=== PATIENT | male | born 1980 | race Caucasian/White ===

== ENCOUNTER 2021-05-05 14:27 | Inpatient (IN) | payer SELFPAY ==
[2021-05-05 14:28] VITALS: BP 141/115; PULSE 125; RESP 18; TEMP 36.6; O2SAT 94; BMI 37.3
[2021-05-05 15:09] LABS: Absolute Lymphocyte Count 1.53 X10^3/uL (0.83-4.51); Absolute Neutrophil Count 3.3 X10^3/uL (2.0-7.7); Basophil# 0.05 X10^3/uL; Basophil% 0.9 % (0-1); Eosinophil# 0.07 X10^3/uL; Eosinophils% 1.3 % (0-5); Hematocrit 47.7 % (40-54); Hemoglobin 16.5 g/dL (13.0-16.5); Lymphocyte # 1.53 X10^3/ul (0.83-4.51); Lymphocyte % 28.2 % (19-41); Mean Corp Hgb Conc 34.6 g/dL (32-36); Mean Corpuscular Hgb 30.4 pg (27.0-32.0); Mean Corpuscular Volume 87.8 fL (80-94); Mean Platelet Vol. 10.5 fl (6.2-12.0); Monocyte# 0.43 X10^3/uL; Monocyte% 7.9 % (0-10); NRBC Flagged by Analyzer 0 % (0-5); Neutrophil # 3.34 X10^3/uL (2.7-7.7); Neutrophil % 61.5 % (47-70); Platelet Count 287 K/mm3 (150-450); RBC Distribution Width CV 14.4 % (11.6-14.6); RBC Distribution Width SD 44.1 fl (35.1-43.9); Red Blood Count 5.43 M/mm3 (4.6-6.2); White Blood Count 5.4 K/mm3 (4.4-11.0)
[2021-05-05 15:31] VITALS: RESP 18
[2021-05-05 15:31] LABS: AST(SGOT) 137 U/L (15-37); Alanine Aminotransfer ALT/SGPT 89 U/L (16-61); Alkaline Phosphatase 110 U/L (45-117); Anion Gap 16 (5-15); BUN 6 mg/dL (7-18); BUN/Creat Ratio 5.8 RATIO (10-20); Calcium,Total 8.5 mg/dL (8.5-10.1); Chloride 98 mmol/L (98-107); Creatinine, Serum 1.04 mg/dL (0.70-1.30); EST Glomerular Filtration Rate 83 mL/min (>60); Est Glom Filt Rate - Afr Amer 100 mL/min (>60); Estimated Creatinine Clearance 95.54 ml/min; Globulin 4.1 g/dL (2.2-4.2); Glucose 116 mg/dL (74-106); Potassium 2.9 mmol/L (3.5-5.1); Protein, Total 8.1 g/dL (6.4-8.2); Sodium Level 137 mmol/L (136-145)
--- NOTE | 2021-05-05 15:45 | EX.ED.DYSGE1 ---
HPI History of Present Illness Chief Complaint: ETOH Intox Informant: patient and spouse/S.O. Narrative Narrative: Patient comes in requesting detox. He states he has been drinking alcohol for probably 15 years or more relatively heavily. He tends to binge more. He will drink very heavily for months at a time and then he will not drink sometimes for months. When he transitions, he does go through withdrawal with nausea anxiety poor sleep muscle aches. He has had hallucinations and withdrawal in the past but that is been a couple years. He has never had a seizure. He drinks mostly gas station vodka which is likely 40 proof. But his girlfriend states he can drink up to 2 bottles 1-1/2 L each day. Nothing specifically got him to the point of going to detox now. He is just realized he really needs to stop drinking. He has never been through formal detox in the past. He has no physical complaints such as fevers chills. He has not been vomiting. Past medical history: Alcoholism, high blood pressure but not on meds No current medications No known allergies Prior surgery is cholecystectomy Independent living, his girlfriend, drinks alcohol as above. [facility] Medical History Cholecystectomy planned Home Medications multivitamin 1 cap PO DAILY 05/05/21 [History Last Taken Unknown] Allergy/AdvReac Type Severity Reaction Status Date / Time No Known Allergies Allergy Verified 05/05/21 14:31 Social History Smoking Status: Never smoker ROS ROS ED Constitutional Constitutional ED: Denies chills or fever(s) Eyes Eyes: Denies blurry vision ENT ENT ED: Denies rhinorrhea or sore throat Cardiovascular Cardiovascular: Denies chest pain Respiratory/Chest Respiratory/Chest: Denies cough or dyspnea Gastrointestinal Gastrointestinal: Denies diarrhea, nausea or vomiting Genitourinary Genitourinary ED: Denies dysuria Musculoskeletal Musculoskeletal: Denies arthralgias or myalgias Integumentary Denies rash Neurologic Neurologic: Denies headache(s) Psychiatric Psychiatric: Reports anxiety and depression; Denies suicidal ideation or suicidal thoughts Endocrine Endocrinology: Denies polydipsia or polyuria Allergic/Immunologic Allergic/Immunologic ED: Denies urticaria EXAM Physical Exam Const Vital Signs: 05/05/21 14:28 05/05/21 15:31 Temperature 97.9 F Temperature Source Temporal Pulse Rate 125 H Respiratory Rate 18 18 Blood Pressure 141/115 H Blood Pressure Mean 123 Pulse Ox 94 Oxygen Delivery Method Room Air Positive well nourished Constitutional Narrative: Patient just looks mildly unkempt. But he is awake alert. He is not toxic. General Appearance ED: Negative for cyanotic or diaphoretic HEENT Reports moist mucous membranes Eyes General Eye ED: Negative for pale conjunctiva or scleral icterus Neck no JVD Chest Wall inspection of chest normal Resp normal respiratory effort Cardio regular rhythm Rate: tachycardic and other Other Details: Mildly tachycardic rate. GI normal to inspection, nondistended, normoactive bowel sounds and non-tender Palpation: soft Back/Spine no CVA tenderness Extremity normal to inspection Neuro oriented x3 Sensorium / Orientation: alert Psych mental status grossly normal Psych Narrative: No ideas. No paranoia. No indication of hallucinations. Attitude: No agitated Skin no rashes or lesions noted General Skin Exam: Negative for jaundice MDM MDM MDM Narrative Medical decision making narrative: CBC is overall normal. Electrolytes do show some mildly low potassium. I will give this some oral replacement. His gap is minimally elevated but bicarb is normal. I do not think this represents full alcoholic ketoacidosis. He has not been vomiting. I am waiting on his alcohol and tox screen. I did discuss the case with the hospitalist and the patient will be admitted. Lab Data Attestation: I reviewed the patient's lab results. Labs: Laboratory Results - last 24 hr 05/05/21 05/05/21 05/05/21 14:57 14:57 15:28 WBC 5.4 RBC 5.43 Hgb 16.5 Hct 47.7 MCV 87.8 MCH 30.4 MCHC 34.6 RDW Std Deviation 44.1 H RDW Coeff of Jose 14.4 Plt Count 287 MPV 10.5 Immature Gran % (Auto) 0.200 Neut % (Auto) 61.5 Lymph % (Auto) 28.2 [place] % (Auto) 7.9 Eos % (Auto) 1.3 Baso % (Auto) 0.9 Absolute Neuts (auto) 3.3 Absolute Lymphs (auto) 1.53 Nucleated RBC % 0 Sodium 137 Potassium 2.9 L Chloride 98 Carbon Dioxide 23.0 Anion Gap 16 H BUN 6 L Creatinine 1.04 Estim Creat Clear Calc 95.54 Est GFR (MDRD) Af Amer 100 Est GFR (MDRD) Non-Af 83 BUN/Creatinine Ratio 5.8 L Glucose 116 H Calcium 8.5 Total Bilirubin 0.90 AST 137 H ALT 89 H Alkaline Phosphatase 110 Total Protein 8.1 Albumin 4.0 Globulin 4.1 Albumin/Globulin Ratio 1.0 Ur Drug Screen Comment Discharge Plan Triage Chief Complaint: ETOH Intox ED Provider: Warren Alvarado Dx/Rx/DC Orders Clinical Impression: Admitted to alcohol detoxification center, Hypokalemia, Alcohol abuse Prescriptions: No Action multivitamin Capsule 1 cap PO DAILY RF: 0 Primary Care Provider: Heydi Epps Referrals: Heydi Epps DO [Primary Care Provider] - Disposition Disposition: Home, Self Care
--- NOTE | 2021-05-05 15:49 | EKG12_ITS ---
Test Reason : ALCOHOL WITHDRAWAL Blood Pressure : / mmHG Vent. Rate : 100 BPM Atrial Rate : 100 BPM P-R Int : 128 ms QRS Dur : 090 ms QT Int : 344 ms P-R-T Axes : 050 -21 -03 degrees QTc Int : 443 ms Normal sinus rhythm Poor R wave progression Confirmed by REBECA MATTHEW, CHARLEY ([id number]), online editor CONSTANCE JARVIS ([id number]) on 05/06/2021 9:25:09 AM Referred By: BEA Confirmed By:CHARLEY JOSE MD
[2021-05-05 15:59] LABS: Amphetamine Urine VISTA NEGATIVE (<1000 ng/mL); Barbiturate Urine VISTA NEGATIVE (< 200 ng/mL); Benzodiazepine Urine VISTA NEGATIVE (< 200 ng/mL); Cocaine Urine VISTA NEGATIVE (< 300 ng/mL); Ecstacy Urine VISTA NEGATIVE (< 500 ng/mL); Methadone Urine VISTA NEGATIVE (< 300 ng/mL); PCP Urine VISTA NEGATIVE (< 25 ng/mL); THC Urine VISTA NEGATIVE (< 50 ng/mL); Vista UDS pH Range 6
--- NOTE | 2021-05-05 16:01 | CM.ED ---
Social Work Telephone call to treatment navigator, Kayla. This home health care social worker updated Kayla on patient admission to [facility]. Social Work to continue to follow as needed. Dejuan MIKE, RUTH
[2021-05-05] MEDS: Potassium Chloride Oral Tablet 20 MEQ 60 MEQ PO (16:18)
[2021-05-05 16:23] VITALS: BP 144/100; PULSE 137; RESP 18; TEMP 37; O2SAT 99
--- NOTE | 2021-05-05 16:29 | HP.PCM.HOS_ITS ---
HPI - General General Date of Admission: 05/05/21 Date of Service: 05/05/21 Chief Complaint: Acute alcohol withdrawal HPI Narrative CHACE BENTLEY, is a 40 M who presented to the emergency department [facility] on 05/05/2021 requesting alcohol detox. The patient states that he has been binge drinker since the early and has been binge drinking currently for approximately 1 week. His last full meal was Tuesday of last week. He is currently drinking about 3 L of gas station vodka daily. He states when he initially started drinking he would come home and not time he would unwind from work and that he has had periodic problems with alcohol abuse since that point time. He does have a family history of alcoholism and uncles on both sides of his family. His last drink was approximately 930 to 10:00 this morning. He is currently having some symptoms associated with tremor, tachycardia, elevated blood pressure and some mild nausea. He states he has good support in his current girlfriend and that she has been advocating for his detox as well. In the emergency department he is afebrile with a heart rate of 125-137 and his blood pressure was mildly elevated at 144/100. His respiratory rate was 18 and his oxygen saturation was 94 to 99% on room air. A CBC was obtained and is unremarkable. A CMP was obtained and shows mild hypokalemia with a potassium of 2.9, and elevated anion gap at 16 a normal serum creatinine, a normal serum bicarb, a glucose of 116 and an AST of 137 with an ALT of 89. His bilirubin is normal. His tox screen is positive for ethyl alcohol with a blood alcohol level of 346. In the emergency department he was given oral potassium supplementation request for admission with regards to alcohol detox was made. [facility] Medical History (Updated 05/05/21 @ 16:[address] Sydnee Rea DO) Alcoholism Cholecystectomy planned Chronic hypokalemia Home Medications multivitamin 1 cap PO DAILY 05/05/21 [History Last Taken Unknown] Allergy/AdvReac Type Severity Reaction Status Date / Time No Known Allergies Allergy Verified 05/05/21 14:31 Family History (Updated 05/05/21 @ 16:[address] Sydnee Rea DO) Other Alcoholism Hypertension no surgical history Social History (Updated 05/05/21 @ 16:[address] Sydnee Álvaro, DO) Smoking Status: Never smoker alcohol intake: current alcohol intake frequency: 3 or more drinks per day Alcohol type: hard liquor substance use type: does not use ROS Constitutional Constitutional: Reports weakness; Denies anorexia, change in weight, chills, fatigue, fever(s), malaise, night sweats or other Eyes Eyes: Denies blurry vision, change in eye color, change in vision, discharge from eye(s), double vision, erythema, eye pain, loss of vision or other ENT HEENT: Denies abnormal hearing, dysphagia, ear pain, epistaxis, headache(s), hearing loss, nasal congestion, nasal discharge, post nasal drip, sinus pressure, sore throat or other Cardiovascular Cardiovascular: Denies chest pain, claudication, dyspnea on exertion, edema, lightheadedness, orthopnea, palpitations, paroxysmal nocturnal dyspnea, rapid heart rate, syncope or other Respiratory/Chest Respiratory/Chest: Denies cough, dyspnea, excessive phlegm production, hemoptysis, productive cough, shortness of breath at rest, shortness of breath with exertion, wheezing or other Gastrointestinal Gastrointestinal: Reports nausea; Denies abdominal pain, coffee ground emesis, constipation, diarrhea, dyspepsia, hematemesis, hematochezia, loose stools, melena, vomiting or other Genitourinary Genitourinary: Denies burning urination, difficulty urinating, dysuria, hematuria, nocturia, urinary frequency, urinary hesitancy, urinary incontinence, urinary urgency or other Musculoskeletal Musculoskeletal: Reports myalgias; Denies arthralgias, back pain, joint pain, joint stiffness, joint swelling, neck pain or other Neurologic Neurologic: Reports tremor(s); Denies abnormal gait, abnormal speech, confusion, disequilibrium, dizziness, focal weakness, headache(s), numbness, paresthesias, seizure-like activity, seizures, syncope, tingling or other Psychiatric Psychiatric: Reports anxiety and depression; Denies homicidal ideation, suicidal ideation or other Endocrine Endocrinology: Denies change in body appearance, cold intolerance, excessive swe ating, heat intolerance, polydipsia, polyuria or other Hematologic/Lymphatic Hematologic/Lymphatic: Denies anemia, easy bleeding, easy bruising, lymphadenopathy or other Allergic/Immunologic Allergic/Immunologic: Denies rhinitis, hives, eczemia, asthma or other Vital Signs Vital Signs Vital Signs: 05/05/21 14:28 05/05/21 15:31 05/05/21 16:23 Temperature 97.9 F 98.6 F Temperature Source Temporal Temporal Pulse Rate 125 H 137 H Respiratory Rate 18 18 18 Blood Pressure 141/115 H 144/100 H Blood Pressure Mean 123 114 Pulse Ox 94 99 Oxygen Delivery Method Room Air Room Air Weight Weight: 117.934 kg Body Mass Index (BMI) 37.3 Physical Exam Const alert, oriented x3, no apparent distress and well nourished Constitutional Narrative: Obese white male lying in bed, girlfriend at bedside, patient appears as if he is not feeling well but nontoxic General Appearance: cooperative HEENT normocephalic, head/scalp atraumatic, hearing grossly normal bilaterally and moist oral mucous membranes HEENT Narrative: Dentition is good, Mallampati is 2-3 Resp normal respiratory effort, no retractions, no use of accessory muscles and clear to auscultation bilaterally Auscultation: Negative for crackles, rales, rhonchi or wheezes Cardio regular rhythm, S1 normal heart sound, S2 normal heart sound, no murmurs, no rub, no gallops, no clicks and no JVD Cardio Narrative: Tachycardic GI normal to inspection, nondistended, normoactive bowel sounds, soft to palpation, non-tender and non-distended Extremity no clubbing, cyanosis or edema Peripheral Pulses: Yes pulses 2+ throughout Skin no rashes or lesions noted, no wounds, skin turgor normal, no jaundice, no petechiae and no mottling Skin Narrative: Multiple tattoos Neuro oriented x3, CN's II-XII intact bilaterally, moves all extremities and no focal motor deficits Sensorium / Orientation: awake and alert Speech: speech normal Motor Exam: strength 5/5 throughout Psych Psych Narrative: Affect is somewhat flat Mood & Affect: anxious Results Lab / Micro Data Result Diagrams: 05/05/21 14:57 05/05/21 14:57 Labs: Laboratory Results - last 24 hr 05/05/21 14:57: WBC 5.4, RBC 5.43, Hgb 16.5, Hct 47.7, MCV 87.8, MCH 30.4, MCHC 34.6, RDW Std Deviation 44.1 H, RDW Coeff of Jose 14.4, Plt Count 287, MPV 10.5, Immature Gran % (Auto) 0.200, Neut % (Auto) 61.5, Lymph % (Auto) 28.2, [place] % (Auto) 7.9, Eos % (Auto) 1.3, Baso % (Auto) 0.9, Absolute Neuts (auto) 3.3, Absolute Lymphs (auto) 1.53, Nucleated RBC % 0 05/05/21 14:57: Ethyl Alcohol 346.0 H* 05/05/21 14:57: Sodium 137, Potassium 2.9 L, Chloride 98, Carbon Dioxide 23.0, Anion Gap 16 H, BUN 6 L, Creatinine 1.04, Estim Creat Clear Calc 95.54, Est GFR (MDRD) Af Amer 100, Est GFR (MDRD) Non-Af 83, BUN/Creatinine Ratio 5.8 L, Glucose 116 H, Calcium 8.5, Total Bilirubin 0.90, AST 137 H, ALT 89 H, Alkaline Phosphatase 110, Total Protein 8.1, Albumin 4.0, Globulin 4.1, Albumin/Globulin Ratio 1.0 05/05/21 15:28: Urine Opiates Screen NEGATIVE, Urine Methadone Screen NEGATIVE, Ur Barbiturates Screen NEGATIVE, Ur Phencyclidine Scrn NEGATIVE, Ur Amphetamines Screen NEGATIVE, U Methamphetamin-MDMA NEGATIVE, U Benzodiazepines Scrn NEGATIVE, Urine Cocaine Screen NEGATIVE, U Cannabinoids Screen NEGATIVE, Ur Drug Screen Comment Assessment & Plan Assessment/Plan (1) Alcoholic hepatitis: (2) Acute alcohol intoxication: (3) Elevated blood pressure reading: (4) Hypokalemia: (5) Alcohol abuse: (6) Alcohol withdrawal: PLAN: Acute alcohol withdrawal/detox -Last drink was 930 to 10:00 this morning -Patient was acutely intoxicated upon presentation with a blood alcohol level of 346 -Tends to binge drink and currently has been drinking about 3 L of vodka that he buys at a [employer] [facility] daily for at least 1 week -Phenobarb taper -CIWA protocol with Ativan -Supportive medications -180 consultation Hypokalemia -60 mEq of p.o. potassium given the emergency department -Repeat BMP in a.m. -Check magnesium and phosphorus levels Alcoholic hepatitis -Mild LFT elevation -Alcoholic pattern -Repeat LFTs in a.m. -Bilirubin is normal Elevated anion gap -Likely related to acute intoxication with ethyl alcohol -Repeat lab in a.m. -Bicarb is normal -He also have a component of starvation ketosis Elevated blood pressure reading -No baseline diagnosis of hypertension -May related to acute withdrawal only -Trend -May need antihypertensive prior to discharge if blood pressure remains elevated Tachycardia -Sinus tach -Suspect related to acute withdrawal -Continue to monitor -No need for telemetry at this time DVT prophylaxis -Early ambulation protocol -Patient is low risk for DVT CODE STATUS -Full code Charges/Coding Visit Charges Inpatient E&M: 54714 Init Hosp L2
[2021-05-05 16:35] VITALS: BMI 38.2
[2021-05-05 16:54] VITALS: BP 158/100; PULSE 106; RESP 18; TEMP 36.8; O2SAT 95
[2021-05-05] MEDS: Phenobarbital 32.4 MG Tablet 64.8 MG PO ×2 (17:28→21:04)
[2021-05-05] MEDS: hydrOXYzine PAM 25 MG Capsule 50 MG PO (17:28)
[2021-05-05] MEDS: traZODone 100 MG Tablet PO (21:04)
[2021-05-05 21:08] VITALS: BP 127/79; PULSE 90; RESP 18; TEMP 36.9; O2SAT 99
[2021-05-06] MEDS: Phenobarbital 32.4 MG Tablet 64.8 MG PO ×6 (01:14→20:28)
[2021-05-06 01:15] VITALS: BP 122/77; PULSE 89; RESP 18; TEMP 37.1; O2SAT 98
[2021-05-06] MEDS: hydrOXYzine PAM 25 MG Capsule 50 MG PO (04:56)
[2021-05-06 04:57] VITALS: BP 124/84; PULSE 79; RESP 18; TEMP 37.1; O2SAT 98
[2021-05-06 07:15] LABS: ALB/GLOB Ratio 0.9 RATIO (0.9-2.4); AST(SGOT) 120 U/L (15-37); Alanine Aminotransfer ALT/SGPT 83 U/L (16-61); Albumin, Serum 3.6 g/dL (3.2-5.0); Alkaline Phosphatase 99 U/L (45-117); Anion Gap 12 (5-15); BUN 6 mg/dL (7-18); BUN/Creat Ratio 7.3 RATIO (10-20); Calcium,Total 8.2 mg/dL (8.5-10.1); Chloride 96 mmol/L (98-107); Creatinine, Serum 0.82 mg/dL (0.70-1.30); EST Glomerular Filtration Rate 109 mL/min (>60); Est Glom Filt Rate - Afr Amer 131 mL/min (>60); Estimated Creatinine Clearance 121.17 ml/min; Globulin 3.9 g/dL (2.2-4.2); Glucose 78 mg/dL (74-106); Magnesium 1.5 mg/dL (1.6-2.6); Potassium 2.9 mmol/L (3.5-5.1); Protein, Total 7.5 g/dL (6.4-8.2); Sodium Level 133 mmol/L (136-145)
--- NOTE | 2021-05-06 07:16 | PN.HOSP_ITS ---
Subjective Subjective 40-year-old gentleman with history of alcohol dependence presented with acute alcohol withdrawal Objective Data Objective Data Vital Signs: Vital Signs Temp Pulse Resp BP Pulse Ox 98.8 F 79 18 124/84 H 98 05/06/21 04:57 05/06/21 04:57 05/06/21 04:57 05/06/21 04:57 05/06/21 04:57 Oxygen Delivery Method Room Air Weight: 120.882 kg Body Mass Index (BMI) 38.2 Intake & Output: Intake and Output for Last 24 Hours 05/04/21 05/05/21 05/06/21 23:59 23:59 23:59 Intake Total 1800 / 1800 Balance 1800 / 1800 Lab / Micro Data Result Diagrams: 05/05/21 14:57 05/06/21 05:15 Labs: Laboratory Results - last 24 hr 05/05/21 14:57: WBC 5.4, RBC 5.43, Hgb 16.5, Hct 47.7, MCV 87.8, MCH 30.4, MCHC 34.6, RDW Std Deviation 44.1 H, RDW Coeff of Jose 14.4, Plt Count 287, MPV 10.5, Immature Gran % (Auto) 0.200, Neut % (Auto) 61.5, Lymph % (Auto) 28.2, [place] % (Auto) 7.9, Eos % (Auto) 1.3, Baso % (Auto) 0.9, Absolute Neuts (auto) 3.3, Absolute Lymphs (auto) 1.53, Nucleated RBC % 0 05/05/21 14:57: Ethyl Alcohol 346.0 H* 05/05/21 14:57: Sodium 137, Potassium 2.9 L, Chloride 98, Carbon Dioxide 23.0, Anion Gap 16 H, BUN 6 L, Creatinine 1.04, Estim Creat Clear Calc 95.54, Est GFR (MDRD) Af Amer 100, Est GFR (MDRD) Non-Af 83, BUN/Creatinine Ratio 5.8 L, Glucose 116 H, Calcium 8.5, Total Bilirubin 0.90, AST 137 H, ALT 89 H, Alkaline Phosphatase 110, Total Protein 8.1, Albumin 4.0, Globulin 4.1, Albumin/Globulin Ratio 1.0 05/05/21 15:28: Urine Opiates Screen NEGATIVE, Urine Methadone Screen NEGATIVE, Ur Barbiturates Screen NEGATIVE, Ur Phencyclidine Scrn NEGATIVE, Ur Amphetamines Screen NEGATIVE, U Methamphetamin-MDMA NEGATIVE, U Benzodiazepines Scrn NEG ATIVE, Urine Cocaine Screen NEGATIVE, U Cannabinoids Screen NEGATIVE, Ur Drug Screen Comment 05/06/21 05:15: Sodium 133 L, Potassium 2.9 L, Chloride 96 L, Carbon Dioxide 25.0, Anion Gap 12, BUN 6 L, Creatinine 0.82, Estim Creat Clear Calc 121.17, Est GFR (MDRD) Af Amer 131, Est GFR (MDRD) Non-Af 109, BUN/Creatinine Ratio 7.3 L, Glucose 78, Calcium 8.2 L, Magnesium 1.5 L, Total Bilirubin 1.40 H, AST 120 H, ALT 83 H, Alkaline Phosphatase 99, Total Protein 7.5, Albumin 3.6, Globulin 3.9, Albumin/Globulin Ratio 0.9 Physical Exam Narrative GENERAL: cooperative HEENT: Atraumatic; EYES; Anicteric, Normal Conjunctiva NECK; supple, normal thyroid, RESPIRATORY: Diminished to auscultation CARDIOVASCULAR: Regular S1 S2, GI: soft, normoactive bowel sounds, : No Renal angle tenderness; EXTREMITIES: No edema, no clubbing, MUSCULOSKELETAL: no muscle waisting NEURO: Awake; no lateralizing signs. SKIN: No Rash PSYCH; Flat affect Assessment & Plan Assessment/Plan (1) Alcoholic hepatitis: (2) Acute alcohol intoxication: (3) Elevated blood pressure reading: (4) Hypokalemia: (5) Alcohol abuse: (6) Alcohol withdrawal: PLAN: 40-year-old gentleman with history of alcohol dependence presented with acute alcohol withdrawal 1. Acute alcohol withdrawal ?Admitted to regular nursing floor being managed with phenobarb taper. Patient progress being monitored with a [facility] protocol 2. Hypokalemia ?Corrected per protocol, subsequent labs ordered for review 3. Hypomagnesemia -corrected per protocol 4. Alcoholic hepatitis ?Monitoring with daily LFTs 5. DVT prophylaxis ?Low risk did encourage ambulation Charges/Coding Visit Charges Inpatient E&M: 39638 Subs Hosp L3
[2021-05-06 07:50] LABS: Phosphorus 2.8 mg/dL (2.5-4.9)
[2021-05-06 08:30] VITALS: BP 144/76; PULSE 105; RESP 18; TEMP 36.6; O2SAT 96
[2021-05-06] MEDS: Potassium Chloride Oral Tablet 20 MEQ PO ×2 (08:33→17:10)
[2021-05-06] MEDS: Thiamine Hydrochloride 100 MG Tablet PO (08:34)
[2021-05-06] MEDS: Multivitamins,Therapeutic Tablet 1 TABLET PO (08:34)
[2021-05-06] MEDS: Magnesium Chloride 64 MG Delay Rel.Tablet 128 MG PO ×2 (08:34→20:27)
[2021-05-06] MEDS: Folic Acid 1 MG Tablet PO (08:34)
[2021-05-06] MEDS: Potassium Chloride Oral Tablet 20 MEQ 40 MEQ PO (08:34)
--- NOTE | 2021-05-06 10:02 | ADDICTION ---
This telegraphic typewriter installer met with PT to conduct ASAM, MSE, AUDIT assessments and to plan for d/c. PT A+Ox4 and participated actively. All assessments completed and placed in PT's chart. PT plans to f/u with [facility] for follow-up treatment services. PT did not indicate a need for transportation post d/c from [facility].
[2021-05-06 12:17] VITALS: BP 151/83; PULSE 100; RESP 18; TEMP 37.2; O2SAT 95
[2021-05-06] MEDS: Gabapentin 300 MG Capsule PO (12:20)
--- NOTE | 2021-05-06 12:30 | CASEMGMT ---
Social Work SW met w/pt as he is listed as self pay. Pt reports to not be feeling well today. 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 Pt states it may be, he is not certain. SW provided to pt resources in [facility], including a list of community resources, information on Job and Family Services, and a Medicaid application. SW also gave pt the application for HCAP here at the hospital. SW offered to assist pt in completing the form, pt does not feel up to it today, states he is feeling foggy. SW left the form w/pt, let him know if he would like to complete it while here, we can come back in to assist. Or if he would like to complete it on his own we will send it down to the financial department. Pt states understanding. SW remains available should any additional social service needs arise. RUTH Valentine
[2021-05-06 17:07] VITALS: BP 160/90; PULSE 99; RESP 18; TEMP 36.6; O2SAT 99
[2021-05-06 20:22] VITALS: BP 160/101; PULSE 88; RESP 16; TEMP 36.6; O2SAT 94
[2021-05-07 00:28] VITALS: BP 150/105; PULSE 83; RESP 16; TEMP 36.8; O2SAT 96
[2021-05-07] MEDS: traZODone 100 MG Tablet PO (00:30)
[2021-05-07] MEDS: Phenobarbital 32.4 MG Tablet 64.8 MG PO ×6 (00:30→20:26)
[2021-05-07 05:19] VITALS: BP 137/93; PULSE 99; RESP 16; TEMP 36.9; O2SAT 94
--- NOTE | 2021-05-07 07:24 | PCM.PN.HOSP ---
Subjective Subjective Patient seen has tolerated phenobarb taper well so far. Do anticipate possible discharge in a.m. if patient continues on the same trajectory Objective Data Objective Data Vital Signs: Vital Signs Temp Pulse Resp BP Pulse Ox 98.4 F 99 16 137/93 H 94 05/07/21 05:19 05/07/21 05:19 05/07/21 05:19 05/07/21 05:19 05/07/21 05:19 Oxygen Delivery Method Room Air Weight: 120.9 kg Body Mass Index (BMI) 38.2 Intake & Output: Intake and Output for Last 24 Hours 05/05/21 05/06/21 05/07/21 23:59 23:59 23:59 Intake Total 2440 / 3140 1000 / 1000 Balance 2440 / 3140 1000 / 1000 Lab / Micro Data Result Diagrams: 05/05/21 14:57 05/06/21 05:15 Labs: Laboratory Results - last 24 hr 05/06/21 05:15: Phosphorus 2.8 Physical Exam Narrative GENERAL: cooperative HEENT: Atraumatic; EYES; Anicteric, Normal Conjunctiva NECK; supple, normal thyroid, RESPIRATORY: Diminished to auscultation CARDIOVASCULAR: Regular S1 S2, GI: soft, normoactive bowel sounds, : No Renal angle tenderness; EXTREMITIES: No edema, no clubbing, MUSCULOSKELETAL: no muscle waisting NEURO: Awake; no lateralizing signs. SKIN: No Rash PSYCH; Flat affect Assessment & Plan Assessment/Plan (1) Alcoholic hepatitis: (2) Acute alcohol intoxication: (3) Elevated blood pressure reading: (4) Hypokalemia: (5) Alcohol abuse: (6) Alcohol withdrawal: PLAN: 40-year-old gentleman with history of alcohol dependence presented with acute alcohol withdrawal 1. Acute alcohol withdrawal ?Admitted to regular nursing floor being managed with phenobarb taper. Patient progress being monitored with a [facility] protocol ?05/07/2021; Patient seen has tolerated phenobarb taper well so far. Do anticipate possible discharge in a.m. if patient continues on the same trajectory 2. Hypokalemia ?Corrected per protocol, subsequent labs ordered for review 3. Hypomagnesemia -corrected per protocol 4. Alcoholic hepatitis ?Monitoring with daily LFTs 5. DVT prophylaxis ?Low risk did encourage ambulation Charges/Coding Visit Charges Inpatient E&M: 03793 Subs Hosp L2
[2021-05-07] MEDS: Folic Acid 1 MG Tablet PO (08:16)
[2021-05-07] MEDS: Thiamine Hydrochloride 100 MG Tablet PO (08:16)
[2021-05-07] MEDS: Magnesium Chloride 64 MG Delay Rel.Tablet 128 MG PO ×2 (08:16→20:26)
[2021-05-07] MEDS: Multivitamins,Therapeutic Tablet 1 TABLET PO (08:17)
[2021-05-07] MEDS: Potassium Chloride Oral Tablet 20 MEQ PO ×2 (08:17→17:00)
[2021-05-07 08:42] VITALS: BP 140/92; PULSE 112; RESP 16; TEMP 36.6; O2SAT 97
[2021-05-07 13:07] VITALS: BP 143/105; PULSE 106; RESP 16; TEMP 37.1; O2SAT 95
[2021-05-07 13:08] VITALS: BP 143/105; PULSE 106; RESP 16; TEMP 37.1; O2SAT 95
[2021-05-07] MEDS: Acetaminophen 325 MG Tablet 650 MG PO (13:15)
[2021-05-07 16:58] VITALS: BP 130/96; PULSE 94; RESP 16; TEMP 37.1; O2SAT 96
[2021-05-08 00:29] VITALS: BP 133/89; PULSE 87; RESP 16; TEMP 37.4; O2SAT 100
[2021-05-08] MEDS: Phenobarbital 32.4 MG Tablet 64.8 MG PO ×2 (00:30→06:38)
[2021-05-08] MEDS: traZODone 100 MG Tablet PO (00:30)
[2021-05-08 06:40] VITALS: BP 128/67; PULSE 96; RESP 16; TEMP 37; O2SAT 98
--- NOTE | 2021-05-08 07:33 | DS.PCM_ITS ---
Providers Date of Admission: 05/05/21 Primary Care Physician: Dr. Heydi Epps, DO Reason For Visit: ETOH WITHDRAW/ DETOX Diagnosis Discharge Diagnosis (1) Alcoholic hepatitis: Status: Acute Code(s): K70.10 - Alcoholic hepatitis without ascites (2) Acute alcohol intoxication: Status: Acute Code(s): F10.929 - Alcohol use, unspecified with intoxication, unspecified (3) Elevated blood pressure reading: Status: Acute Code(s): R03.0 - Elevated blood-pressure reading, without diagnosis of hypertension (4) Hypokalemia: Status: Acute Code(s): E87.6 - Hypokalemia (5) Alcohol abuse: Status: Acute Code(s): F10.10 - Alcohol abuse, uncomplicated (6) Alcohol withdrawal: Status: Acute Code(s): F10.239 - Alcohol dependence with withdrawal, unspecified Medications at Discharge Home Medications multivitamin 1 cap PO DAILY 05/05/21 magnesium oxide 400 mg PO BID #30 cap 05/08/21 potassium chloride [Klor-Con M20] 20 meq PO BIDCM #30 tab 05/08/21 Hospital Course Summary of Care Provided Minutes Spent on Discharge: 32 Hospital Course: 40-year-old gentleman with history of alcohol dependence presented with acute alcohol withdrawal 1. Acute alcohol withdrawal ?Admitted to regular nursing floor being managed with phenobarb taper. Patient progress being monitored with a [facility] protocol ?05/07/2021; Patient seen has tolerated phenobarb taper well so far. Do anticipate possible discharge in a.m. if patient continues on the same trajectory -05/08/2021; patient deemed stable for discharge 2. Hypokalemia ?Corrected per protocol, subsequent labs ordered for review 3. Hypomagnesemia -corrected per protocol 4. Alcoholic hepatitis ?Monitoring with daily LFTs 5. DVT prophylaxis ?Low risk did encourage ambulation Physical Exam Narrative GENERAL: cooperative HEENT: Atraumatic; EYES; Anicteric, Normal Conjunctiva NECK; supple, normal thyroid, RESPIRATORY: Diminished to auscultation CARDIOVASCULAR: Regular S1 S2, GI: soft, normoactive bowel sounds, : No Renal angle tenderness; EXTREMITIES: No edema, no clubbing, MUSCULOSKELETAL: no muscle waisting NEURO: Awake; no lateralizing signs. SKIN: No Rash PSYCH; Flat affect Weight / BMI Weight Weight: 120.9 kg Body Mass Index (BMI) 38.2 ABG / Lab / Microbiology Data Result Diagrams: 05/05/21 14:57 05/06/21 05:15 Meaningful Use Info Meaningful Use Diagnoses (Choose all that apply): None applicable Discharge Plan Admission Admit Date/Time: 05/05/21 15:52 Attending Provider: Krunal Coulter Primary Care Provider: Heydi Epps Discharge Orders/Prescriptions Prescriptions: New potassium chloride [Klor-Con M20] 20 mEq Tablet,Er Particles/Crystals 20 meq PO BIDCM Qty: 30 RF: 0 magnesium oxide 400 mg magnesium capsule 400 mg PO BID Qty: 30 RF: 0 Continued multivitamin Capsule 1 cap PO DAILY RF: 0 Referrals / Follow Up: Heydi Epps DO [Primary Care Provider] - Within 2 Weeks Disposition Disposition (needs filled in before D/C Order can be placed): Home, Self Care Charges/Coding Visit Charges Inpatient E&M: 03207 Disch Hosp
[2021-05-08] MEDS: Potassium Chloride Oral Tablet 20 MEQ PO (08:27)
[2021-05-08] MEDS: Magnesium Chloride 64 MG Delay Rel.Tablet 128 MG PO (08:27)
[2021-05-08] MEDS: Multivitamins,Therapeutic Tablet 1 TABLET PO (08:27)
[2021-05-08] MEDS: Thiamine Hydrochloride 100 MG Tablet PO (08:27)
[2021-05-08] MEDS: Folic Acid 1 MG Tablet PO (08:27)
[2021-05-08 08:32] VITALS: BP 119/79; PULSE 101; RESP 16; TEMP 36.6; O2SAT 98
== END 2021-05-08 11:18 | disposition home or self-care (01) | DRG 897 ==
LOC: ED 15:53 → MS3 15:58
PROVIDERS: Admitting Provider Internal Medicine; Emergency Provider Emergency Medicine; PCP Internal Medicine; Visit Provider Internal Medicine
DX: F10.239 Alcohol dependence with withdrawal, unspecified (principal); E83.42 Hypomagnesemia; K70.10 Alcoholic hepatitis without ascites; E87.6 Hypokalemia; R03.0 Elevated blood-pressure reading, without diagnosis of hypertension; Y90.8 Blood alcohol level of 240 mg/100 ml or more
CPT/HCPCS: 36415; 80053; 80307; 82077; 83735; 84100; 85025; 93005; 97802; 99283; A4216